=== PATIENT | female | born 1965 | race Caucasian/White ===

== ENCOUNTER 2016-06-29 00:20 | Emergency (ER) | payer MEDICAID ==
[~2016-06-29] VITALS: Ht 172.7 cm; Wt 72.6 kg
[~2016-06-29 00:20] MED LIST: ALPR1TAB2 PO; FLUO40CA8 PO; MORP30TA PO; OXYC10TA49 PO
[2016-06-29] MEDS ORDERED: ONDANSETRON 4 MG TAB.RAPDIS ONE ×2 (01:44→04:12)
[2016-06-29] MEDS ORDERED: ONDANSETRON HCL/PF 4 MG/2 ML VIAL ONE ×2 (01:49→03:14)
[2016-06-29 02:00] LABS: BASOPHILS % (AUTO) 0.3 % (0.0-2.0); DIFF TOTAL % 100 %; EOSINOPHILS # (AUTO) 0.1 /CMM (0.0-0.7); EOSINOPHILS % (AUTO) 0.5 % (0.0-6.0); HEMATOCRIT 37 % (33-45); HEMOGLOBIN 12.5 g/dL (11.5-14.8); LYMPHOCYTES # (AUTO) 1.6 /CMM (0.8-4.8); LYMPHOCYTES % (AUTO) 13.9 % (20.0-44.0); MEAN CORPUSCULAR HEMOGLOBIN 30 PG (26.0-33.0); MEAN CORPUSCULAR HGB CONC 34 g/dl (31.0-36.0); MEAN CORPUSCULAR VOLUME 89 fL (82-100); MONOCYTES # (AUTO) 0.5 /CMM (0.1-1.30); MONOCYTES % (AUTO) 4.4 % (2.0-12.0); NEUTROPHILS # (AUTO) 9.3 /CMM (1.8-8.9); NEUTROPHILS % (AUTO) 80.9 % (43.0-81.0); PLATELET COUNT (AUTO) 308 /CMM (150-450); RED BLOOD CELL COUNT(AUTO) 4.22 MIL/uL (4.0-5.2); WHITE BLOOD COUNT (AUTO) 11.5 K/uL (4.3-11.0)
[2016-06-29] MEDS ORDERED: ONDANSETRON HCL/PF 4 MG/2 ML VIAL IVP ONE (02:00)
[2016-06-29] MEDS ORDERED: HYDROMORPHONE INJ 2 MG/ML DISP.SYRIN IV ONE (02:00)
[2016-06-29] MEDS ORDERED: diphenhydrAMINE HCL 50 MG/ML VIAL IV ONE (02:00)
[2016-06-29] MEDS ORDERED: IV NS 0.9% 1,000 ML BAG IV ONE (02:00)
[2016-06-29] MEDS ORDERED: ONDANSETRON 4 MG TAB.RAPDIS SL ONE ×2 (02:00→04:30)
[2016-06-29] MEDS ORDERED: HYDROMORPHONE 1 MG/1 ML DISP.SYRIN ONE ×2 (02:04→03:14)
[2016-06-29] MEDS ORDERED: diphenhydrAMINE HCL 50 MG/ML VIAL ONE (02:04)
[2016-06-29] MEDS ORDERED: IV NS 0.9% 1,000 ML ONE (02:04)
[2016-06-29] MEDS ORDERED: IV SET PRIMARY 1 EA INFUS.SET MC ONE (02:04)
[2016-06-29 02:14] LABS: CALCIUM, SERUM 9.3 mg/dL (8.5-10.1)
[2016-06-29 02:20] LABS: ALBUMIN 4.1 g/dL (3.4-5.0); BILIRUBIN,DIRECT 0.1 mg/dL (0.0-0.2); BILIRUBIN,TOTAL 0.3 mg/dL (0.2-1.0); INDIRECT BILIRUBIN 0.2 mg/dL (0.0-1.1); TOTAL PROTEIN, SERUM 7.8 g/dL (6.4-8.2)
[2016-06-29] MEDS ORDERED: ONDANSETRON HCL/PF 4 MG/2 ML VIAL IV ONE (03:30)
[2016-06-29] MEDS ORDERED: HYDROMORPHONE 1 MG/1 ML DISP.SYRIN IV ONE (03:30)
[2016-06-29] MEDS ORDERED: HYDROCODONE/APAP 5/325MG 1 EACH TABLET ONE (04:08)
[2016-06-29 04:24] VITALS: BP 139/89
[2016-06-29] MEDS ORDERED: HYDROCODONE/APAP 5/325MG 1 EACH TABLET PO ONE (04:30)
== END 2016-06-29 04:25 | disposition home or self-care (01) ==
LOC: ER 00:23
DX: K80.20 Calculus of gallbladder without cholecystitis without obstruction (principal); F17.200 Nicotine dependence, unspecified, uncomplicated; Z85.820 Personal history of malignant melanoma of skin
CPT/HCPCS: 36415; 74176; 76705; 80048; 80076; 83690; 85025; 96361; 96374; 96375; 96376; 99285; A4606; J1170; J1200; J2405; J7030; Q0162 ×2; Z7610

== ENCOUNTER 2016-12-06 14:52 | Emergency (ER) | payer MEDICAID, OTHER ==
[~2016-12-06] VITALS: Ht 172.7 cm; Wt 86.2 kg
--- NOTE | 2016-12-06 15:19 | NUR ---
VAGINAL BLEEDING X 4 DAYS. 1 TAMPON/HOUR SINCE YESTERDAY
[2016-12-06 15:28] LABS: BASOPHILS # (AUTO) 0.1 /CMM (0.0-0.2); BASOPHILS % (AUTO) 0.7 % (0.0-2.0); EOSINOPHILS # (AUTO) 0.1 /CMM (0.0-0.7); EOSINOPHILS % (AUTO) 0.8 % (0.0-6.0); HEMATOCRIT 41 % (33-45); HEMOGLOBIN 13.6 g/dL (11.5-14.8); LYMPHOCYTES # (AUTO) 1.8 /CMM (0.8-4.8); MEAN CORPUSCULAR HEMOGLOBIN 28 PG (26.0-33.0); MEAN CORPUSCULAR HGB CONC 33 g/dl (31.0-36.0); MEAN CORPUSCULAR VOLUME 87 fL (82-100); MONOCYTES # (AUTO) 0.3 /CMM (0.1-1.30); MONOCYTES % (AUTO) 2.4 % (2.0-12.0); NEUTROPHILS # (AUTO) 8.1 /CMM (1.8-8.9); NEUTROPHILS % (AUTO) 79.1 % (43.0-81.0); PLATELET COUNT (AUTO) 338 /CMM (150-450); RDW COEFFICIENT OF VARIATION 13.8 (11.5-15.0); RED BLOOD CELL COUNT(AUTO) 4.77 MIL/uL (4.0-5.2); WHITE BLOOD COUNT (AUTO) 10.4 K/uL (4.3-11.0)
[2016-12-06] MEDS ORDERED: ACETAMINOPHEN ES 500 MG TABLET ONE (15:30)
[2016-12-06] MEDS ORDERED: IBUPROFEN 600 MG TABLET PO ONE ×2 (15:30)
[2016-12-06] MEDS ORDERED: ACETAMINOPHEN ES 500 MG TABLET PO ONE (15:30)
[2016-12-06 15:38] LABS: CALCIUM, SERUM 8.9 mg/dL (8.5-10.1); CREATININE 0.9 mg/dL (0.6-1.3); POTASSIUM 4.1 mmol/L (3.5-5.1)
[2016-12-06 16:09] LABS: THYROID STIMULATING HORMONE 2.133 uIU/mL (0.358-3.74)
--- NOTE | 2016-12-06 17:06 | NUR ---
Patient discharged to home in stable condition. Written and verbal after care instructions given. Patient verbalizes understanding of instruction.
[2016-12-06 17:10] VITALS: BP 115/82
== END 2016-12-06 17:10 | disposition home or self-care (01) ==
LOC: ER 15:08
DX: N93.8 Other specified abnormal uterine and vaginal bleeding (principal); N83.201 Unspecified ovarian cyst, right side; N95.0 Postmenopausal bleeding; Z85.820 Personal history of malignant melanoma of skin; F17.200 Nicotine dependence, unspecified, uncomplicated; Z98.890 Other specified postprocedural states
CPT/HCPCS: 36415; 76856; 80048; 84439; 84443; 84702; 85025; 99285; 99406; A4606; Z7610

== ENCOUNTER 2018-03-22 15:48 | Emergency (ER) | payer MEDICAID ==
[~2018-03-22] VITALS: Ht 175.3 cm; Wt 74.8 kg
--- NOTE | 2018-03-22 16:10 | NUR ---
PT BED 16, C/O supra pubic abd pain and vaginal bleeding x 2 weeks (3 pads/day) s/p DNC. AOX4, VSS, RR EVEN AND UNLABORED. SKIN WARM, DRY, INTACT. DENIES SOB, DIZZINESS, WEAKNESS, N/V/D. READY FOR EVAL. WILL CONT TO MONITOR.
[2018-03-22] MEDS ORDERED: ONDANSETRON HCL/PF 4 MG/2 ML VIAL ONE (16:28)
[2018-03-22] MEDS ORDERED: MORPHINE SULFATE INJ 4 MG/ML DISP.SYRIN ONE (16:28)
[2018-03-22] MEDS ORDERED: MORPHINE SULFATE INJ 2 MG/ML DISP.SYRIN IV ONE (16:30)
[2018-03-22] MEDS ORDERED: ONDANSETRON HCL/PF 4 MG/2 ML VIAL IVP ONE (16:30)
[2018-03-22] MEDS ORDERED: IV NS 0.9% 1,000 ML BAG IV ONE (16:30)
[2018-03-22 16:50] LABS: BASOPHILS # (AUTO) 0.1 /CMM (0.0-0.2); BASOPHILS % (AUTO) 0.9 % (0.0-2.0); EOSINOPHILS % (AUTO) 1.7 % (0.0-6.0); HEMATOCRIT 38 % (33-45); HEMOGLOBIN 13.2 g/dL (11.5-14.8); LYMPHOCYTES % (AUTO) 28.5 % (20.0-44.0); MEAN CORPUSCULAR HGB CONC 35 g/dl (31.0-36.0); MEAN CORPUSCULAR VOLUME 92 fL (82-100); MONOCYTES # (AUTO) 0.5 /CMM (0.1-1.30); MONOCYTES % (AUTO) 4.4 % (2.0-12.0); NEUTROPHILS # (AUTO) 6.9 /CMM (1.8-8.9); NEUTROPHILS % (AUTO) 64.5 % (43.0-81.0); PLATELET COUNT (AUTO) 282 /CMM (150-450); RED BLOOD CELL COUNT(AUTO) 4.16 MIL/uL (4.0-5.2); WHITE BLOOD COUNT (AUTO) 10.6 K/uL (4.3-11.0)
[2018-03-22 17:02] LABS: CALCIUM, SERUM 8.7 mg/dL (8.5-10.1); CREATININE 1.1 mg/dL (0.6-1.3); POTASSIUM 3.3 mmol/L (3.5-5.1)
[2018-03-22 17:07] LABS: ALBUMIN 3.5 g/dL (3.4-5.0); BILIRUBIN,DIRECT 0.1 mg/dL (0.0-0.2); BILIRUBIN,TOTAL 0.2 mg/dL (0.2-1.0)
--- NOTE | 2018-03-22 17:20 | NUR ---
PAGED OFFICE FOR DR. ADELINA SIMENTAL - HEEL ROOM SUPERVISOR WILL CALL BACK
--- NOTE | 2018-03-22 17:21 | NUR ---
NUMBER FOR OFFICE IS [phone]
[2018-03-22 17:37] LABS: APPEARANCE,URINE Cloudy (CLEAR); BILIRUBIN,URINE Negative (NEGATIVE); BLOOD, URINE Moderate Ery/uL (NEGATIVE); COLOR,URINE Yellow (YELLOW); KETONES,URINE Negative (NEGATIVE); LEUKOCYTE ESTERASE ,URINE Negative (NEGATIVE); NITRITE, URINE Positive (NEGATIVE); PROTEIN,URINE Negative (NEGATIVE); UGLUCOSE Negative (NEGATIVE); UROBILINOGEN,URINE 0.2 EU/dL (0.2)
--- NOTE | 2018-03-22 17:45 | NUR ---
IV removed. Catheter intact and site benign. Pressure and 4x4 applied to site. No bleeding noted. Patient discharged to home in stable condition. Written and verbal after care instructions given. Patient verbalizes understanding of instruction.
[2018-03-22 17:53] LABS: BACTERIA,URINE Many /HPF (None Seen); RBC,URINE 0-2 /HPF (0-2); SQUAMOUS EPITHELIAL CELL,UR Many /HPF (None Seen); WBC,URINE 0-2 /HPF (0-3)
[2018-04-01 15:10] VITALS: BP 126/74
== END 2018-03-22 17:45 | disposition home or self-care (01) ==
LOC: ER 15:49
DX: R10.2 Pelvic and perineal pain (principal); R11.2 Nausea with vomiting, unspecified; M79.7 Fibromyalgia; F17.200 Nicotine dependence, unspecified, uncomplicated; Z60.2 Problems related to living alone; Z98.890 Other specified postprocedural states
CPT/HCPCS: 36415; 76856-TC; 80048-TC; 80076-TC; 81000-TC; 84703-TC; 85025-TC; 85730-TC; 87086-TC; 87186-TC; A4606; J2270; J2405; J7030; Z7610

== ENCOUNTER 2018-03-23 16:45 | Emergency (ER) | payer MEDICAID ==
[~2018-03-23] VITALS: Ht 172.7 cm; Wt 89.4 kg
--- NOTE | 2018-03-23 17:08 | NUR ---
53 Y/O FEMALE PLACED IN BED 13 C/O EXCESS ALCOHOL CONSUMPTION.
[2018-03-23] MEDS ORDERED: KETOROLAC TROMETHAMINE INJ 30 MG/ML VIAL IV ONE (18:00)
[2018-03-23] MEDS ORDERED: ONDANSETRON HCL/PF 4 MG/2 ML VIAL IVP ONE (18:00)
[2018-03-23] MEDS ORDERED: CEFTRIAXONE 1GM BAG (ER ONLY) 1 GM/50 ML PIGGYBACK IV ONE (18:00)
[2018-03-23] MEDS ORDERED: IV NS 0.9% 1,000 ML BAG IV ONE (18:00)
--- NOTE | 2018-03-23 19:00 | NUR ---
Addendum Intravenous fluid administration 1. normal saline 1 L wide open; start time 1929 - end time 2329; PIV # 22 LAC; port # 1 2. Toradol 30 mg - IVP - PIV # 22 LAC; port # 1 3. Rocephine 1 gram IVPB; start time 1909 - end time 1939; PIV # 22 LAC; port # 2
[2018-03-23] MEDS ORDERED: KETOROLAC TROMETHAMINE INJ 30 MG/ML VIAL ONE (19:08)
[2018-03-23] MEDS ORDERED: ONDANSETRON HCL/PF 4 MG/2 ML VIAL ONE (19:08)
[2018-03-23] MEDS ORDERED: CEFTRIAXONE 1GM BAG (ER ONLY) 50 ML IV ONE (19:09)
[2018-03-23 20:10] VITALS: BP 126/74
--- NOTE | 2018-03-23 21:10 | NUR ---
Pt pulled out her IV. Pt yelling and cursing at ER staff. Pt states that she wants to leave. Jose WILBURN notified.
--- NOTE | 2018-03-23 21:14 | NUR ---
DECIDED TO WALK OUT.PT BRINDA
== END 2018-03-23 22:41 | disposition left against medical advice (07) ==
LOC: ER 16:46
DX: N39.0 Urinary tract infection, site not specified (principal); F10.129 Alcohol abuse with intoxication, unspecified; M79.7 Fibromyalgia; F17.200 Nicotine dependence, unspecified, uncomplicated; Z60.2 Problems related to living alone; Z98.890 Other specified postprocedural states; Z79.899 Other long term (current) drug therapy; Y90.9 Presence of alcohol in blood, level not specified
CPT/HCPCS: A4606; J0696; J1885; J2405; J7030; Z7610

== ENCOUNTER 2018-06-22 06:27 | Emergency (ER) | payer MEDICAID ==
[~2018-06-22] VITALS: Ht 172.7 cm; Wt 72.6 kg
--- NOTE | 2018-06-22 06:35 | NUR ---
PT BIBRA FROM HOME C/O L SIDE RIB PAIN S/P GLF LAST NIGHT AFTER DRINKING. NOTED ABRASION TO R CHEEK. DENIES LOC. PT ON MONITOR IN BED 2. NAD NOTED. RESP EVEN AND UNLABORED. WILL CONTINUE TO MONITOR.
[2018-06-22] MEDS ORDERED: ONDANSETRON HCL/PF 4 MG/2 ML VIAL ONE (06:42)
[2018-06-22] MEDS ORDERED: LORAZEPAM INJ 2 MG/ML VIAL ONE (06:43)
[2018-06-22] MEDS ORDERED: CT SWABBABLE VALVE TRANS SET 1 EA INFUS.SET MC ONE (06:52)
[2018-06-22] MEDS ORDERED: IV NS 0.9% 250 ML IV ONE (06:52)
[2018-06-22] MEDS ORDERED: IOHEXOL-350 100 ML VIAL IV ONE (06:52)
[2018-06-22] MEDS ORDERED: IOHEXOL-300 100 ML VIAL IV ONE (06:54)
--- NOTE | 2018-06-22 06:54 | NUR ---
BLOOD DRAWN AND GIVEN TO LAB
[2018-06-22 06:59] LABS: BASOPHILS # (AUTO) 0.1 /CMM (0.0-0.2); BASOPHILS % (AUTO) 0.4 % (0.0-2.0); EOSINOPHILS % (AUTO) 0.2 % (0.0-6.0); HEMATOCRIT 36 % (33-45); HEMOGLOBIN 11.9 g/dL (11.5-14.8); LYMPHOCYTES # (AUTO) 1.2 /CMM (0.8-4.8); LYMPHOCYTES % (AUTO) 8.2 % (20.0-44.0); MEAN CORPUSCULAR HGB CONC 34 g/dl (31.0-36.0); MEAN CORPUSCULAR VOLUME 94 fL (82-100); MONOCYTES # (AUTO) 0.8 /CMM (0.1-1.30); MONOCYTES % (AUTO) 5.5 % (2.0-12.0); NEUTROPHILS % (AUTO) 85.7 % (43.0-81.0); PLATELET COUNT (AUTO) 290 /CMM (150-450); RED BLOOD CELL COUNT(AUTO) 3.78 MIL/uL (4.0-5.2); WHITE BLOOD COUNT (AUTO) 15.1 K/uL (4.3-11.0)
--- NOTE | 2018-06-22 06:59 | NUR ---
PT TAKEN TO RADIOLOGY VIA [facility]
[2018-06-22] MEDS ORDERED: ONDANSETRON HCL/PF 4 MG/2 ML VIAL IVP ONE (07:00)
[2018-06-22] MEDS ORDERED: IV NS 0.9% 500 ML BAG IV ONE (07:00)
[2018-06-22] MEDS ORDERED: LORAZEPAM INJ 2 MG/ML VIAL IV ONE (07:00)
[2018-06-22 07:14] LABS: ALBUMIN 3.9 g/dL (3.4-5.0); BILIRUBIN,DIRECT 0.4 mg/dL (0.0-0.2); CALCIUM, SERUM 8.1 mg/dL (8.5-10.1); CREATININE 2.9 mg/dL (0.6-1.3); POTASSIUM 3.3 mmol/L (3.5-5.1); TOTAL PROTEIN, SERUM 7.7 g/dL (6.4-8.2)
--- NOTE | 2018-06-22 07:26 | NUR ---
received report from felix ROB for [facility].
--- NOTE | 2018-06-22 07:27 | NUR ---
patient came back from ct.
[2018-06-22] MEDS ORDERED: IV NS 0.9% 1,000 ML BAG IV ONE (08:00)
[2018-06-22] MEDS ORDERED: LEVO75TA7 PO (08:08)
[2018-06-22] MEDS ORDERED: CHLO50TA PO (08:08)
[2018-06-22] MEDS ORDERED: CYCL10TA9 PO (08:08)
[2018-06-22] MEDS ORDERED: METF-440 PO (08:08)
[2018-06-22] MEDS ORDERED: BUPR150T10 PO (08:08)
[2018-06-22] MEDS ORDERED: BENA20TA9 PO (08:08)
[2018-06-22] MEDS ORDERED: NPH,100V SQ (08:08)
[2018-06-22] MEDS ORDERED: ACET1TAB23 PO (08:09)
[2018-06-22] MEDS ORDERED: IBUP-1492 PO (08:09)
--- NOTE | 2018-06-22 08:14 | NUR ---
[facility] [phone] Pt accepted to [facility] Bed 120-A Number for report is [phone] [place] for transport is [id number] Transport Auth # [id number]
--- NOTE | 2018-06-22 08:51 | NUR ---
report given to Lindsay from [facility] for [facility].
[2018-06-22 10:55] VITALS: BP 110/64
--- NOTE | 2018-06-22 11:11 | NUR ---
Patient picked up by [facility] in no apparent distress noted, going to [facility].
== END 2018-06-22 11:11 | disposition short-term general hospital (02) ==
LOC: ER 06:32
DX: S30.1XXA Contusion of abdominal wall, initial encounter (principal); S00.81XA Abrasion of other part of head, initial encounter; F10.20 Alcohol dependence, uncomplicated; N28.9 Disorder of kidney and ureter, unspecified; Z98.890 Other specified postprocedural states; Z60.2 Problems related to living alone; Z79.84 Long term (current) use of oral hypoglycemic drugs; Z79.899 Other long term (current) drug therapy; W18.39XA Other fall on same level, initial encounter; Y93.89 Activity, other specified; Y92.89 Other specified places as the place of occurrence of the external cause; Y99.8 Other external cause status
CPT/HCPCS: 36415; 70450; 71260; 72125; 74177; 80048; 80076; 80307; 82550; 85025; 85730; 86850; 96374; 96375; 99285; A4606; J2060; J2405; J7030; J7040; J7050; Q9967 ×2; G0480

== ENCOUNTER 2018-08-19 14:54 | Inpatient (IN) | payer MEDICAID ==
[~2018-08-19] VITALS: Ht 172.7 cm; Wt 84.4 kg
[~2018-08-19 14:54] MED LIST changes: +ACET1TAB23 PO; +BENA20TA9 PO; +BUPR150T10 PO; +CHLO50TA PO; +CYCL10TA9 PO; +IBUP-1492 PO; +LEVO75TA7 PO; +METF-440 PO; -MORP30TA PO; +NPH,100V SQ
[2018-08-19] MEDS ORDERED: TDAP [DIPH/PERTUSSIS/TET] 0.5 ML VIAL IM ONE ×2 (15:52→16:00)
[2018-08-19] MEDS ORDERED: LEVETIRACETAM (500MG) 1,000 MG in IV NS 0.9% 100 ML IV SCH (16:30)
[2018-08-19 16:48] LABS: BASOPHILS # (AUTO) 0.1 /CMM (0.0-0.2); BASOPHILS % (AUTO) 0.5 % (0.0-2.0); EOSINOPHILS % (AUTO) 0.3 % (0.0-6.0); HEMATOCRIT 37 % (33-45); HEMOGLOBIN 12.4 g/dL (11.5-14.8); LYMPHOCYTES # (AUTO) 1.1 /CMM (0.8-4.8); LYMPHOCYTES % (AUTO) 10.9 % (20.0-44.0); MEAN CORPUSCULAR HGB CONC 34 g/dl (31.0-36.0); MEAN CORPUSCULAR VOLUME 98 fL (82-100); MONOCYTES # (AUTO) 0.3 /CMM (0.1-1.30); MONOCYTES % (AUTO) 2.9 % (2.0-12.0); NEUTROPHILS # (AUTO) 8.8 /CMM (1.8-8.9); NEUTROPHILS % (AUTO) 85.4 % (43.0-81.0); PLATELET COUNT (AUTO) 250 /CMM (150-450); RED BLOOD CELL COUNT(AUTO) 3.78 MIL/uL (4.0-5.2); WHITE BLOOD COUNT (AUTO) 10.3 K/uL (4.3-11.0)
[2018-08-19] MEDS ORDERED: ONDANSETRON HCL/PF 4 MG/2 ML VIAL ONE (16:53)
[2018-08-19 16:56] LABS: POTASSIUM 3.7 mmol/L (3.5-5.1)
[2018-08-19] MEDS ORDERED: ONDANSETRON HCL/PF 4 MG/2 ML VIAL IV ONE (17:00)
[2018-08-19] MEDS ORDERED: IV NS 0.9% 1,000 ML BAG IV ONE (17:00)
[2018-08-19 17:01] LABS: ALBUMIN 3.6 g/dL (3.4-5.0); BILIRUBIN,DIRECT 0.3 mg/dL (0.0-0.2); BILIRUBIN,TOTAL 0.8 mg/dL (0.2-1.0); TOTAL PROTEIN, SERUM 7.1 g/dL (6.4-8.2)
[2018-08-19 17:05] LABS: ALCOHOL, BLOOD 341 mg/dL (0-0); SALICYLATE 3.6 mg/dL (2.8-20.0)
[2018-08-19 17:06] LABS: ACETAMINOPHEN < 5 ug/ml (10-30)
[2018-08-19] MEDS ORDERED: ALPR2TAB7 PO (17:26)
[2018-08-19] MEDS ORDERED: BLOO-668 IN (17:26)
[2018-08-19 18:03] VITALS: BP 126/70
[2018-08-19 18:53] LABS: CREATINE KINASE, TOTAL 223 U/L (26-192)
[2018-08-19 19:00] VITALS: BP 117/70
[2018-08-19] MEDS ORDERED: ACETAMINOPHEN 325 MG TABLET PO PRN (19:00)
[2018-08-19] MEDS ORDERED: MAGNESIUM HYDROXIDE 30 ML UDC PO PRN (19:00)
[2018-08-19] MEDS ORDERED: MAG HYDROX/AL HYDROX/SIMETH 30 ML UDC PO PRN (19:00)
[2018-08-19] MEDS ORDERED: LORAZEPAM INJ 2 MG/ML VIAL IV PRN (19:00)
[2018-08-19] MEDS ORDERED: ONDANSETRON HCL/PF 4 MG/2 ML VIAL IVP PRN (19:00)
[2018-08-19] MEDS ORDERED: Z GUARD REMEDY 2 OZ OINT TP PRN ×2 (19:00)
[2018-08-19] MEDS: MORPHINE SULFATE INJ 2 MG/ML DISP.SYRIN IV PRN (19:23)
[2018-08-19] MEDS ORDERED: DEXTROSE 50%-WATER 50 ML DISP.SYRIN IV PRN (19:30)
[2018-08-19] MEDS: IV NS 0.9% 1,000 ML IV PRN (19:30)
[2018-08-19 20:00] VITALS: BP 115/88
[2018-08-19 21:00] VITALS: BP 93/55
[2018-08-19] MEDS: LORAZEPAM INJ 2 MG/ML VIAL IV PRN (21:07)
[2018-08-19 22:00] VITALS: BP 104/53
[2018-08-19] MEDS: HYDROCODONE/APAP 5/325MG 1 EACH TABLET PO PRN (22:22)
[2018-08-19] MEDS: INSULIN REGULAR, HUMAN 100 UNIT/ML 3 ML VIAL SQ PRN (22:28)
[2018-08-19] MEDS: BLOOD SUGAR DIAGNOSTIC 1 EACH STRIP IN SCH (22:29)
[2018-08-19 23:00] VITALS: BP 102/52
[2018-08-19] MEDS: ZOLPIDEM TARTRATE 5 MG TABLET PO PRN (23:58)
[2018-08-20] VITALS (18 sets, daily range): BP systolic 90–124; BP diastolic 31–73
[2018-08-20] MEDS: LORAZEPAM INJ 2 MG/ML VIAL IV PRN ×3 (03:03→21:43)
[2018-08-20] MEDS: LEVETIRACETAM (500MG) 1,000 MG in IV NS 0.9% 100 ML IV SCH ×2 (04:15→16:24)
[2018-08-20] MEDS: HYDROCODONE/APAP 5/325MG 1 EACH TABLET PO PRN ×2 (06:08→20:06)
[2018-08-20] MEDS: BLOOD SUGAR DIAGNOSTIC 1 EACH STRIP IN SCH ×4 (07:42→21:55)
[2018-08-20] MEDS: LEVOTHYROXINE SODIUM 75 MCG TABLET PO SCH (07:42)
[2018-08-20 08:57] LABS: BASOPHILS % (AUTO) 0.3 % (0.0-2.0); EOSINOPHILS % (AUTO) 0.5 % (0.0-6.0); HEMATOCRIT 28 % (33-45); HEMOGLOBIN 9.7 g/dL (11.5-14.8); LYMPHOCYTES # (AUTO) 1.3 /CMM (0.8-4.8); LYMPHOCYTES % (AUTO) 14.9 % (20.0-44.0); MEAN CORPUSCULAR HGB CONC 35 g/dl (31.0-36.0); MEAN CORPUSCULAR VOLUME 97 fL (82-100); MONOCYTES # (AUTO) 0.5 /CMM (0.1-1.30); MONOCYTES % (AUTO) 6.2 % (2.0-12.0); NEUTROPHILS % (AUTO) 78.1 % (43.0-81.0); PLATELET COUNT (AUTO) 159 /CMM (150-450); RED BLOOD CELL COUNT(AUTO) 2.89 MIL/uL (4.0-5.2); WHITE BLOOD COUNT (AUTO) 8.9 K/uL (4.3-11.0)
[2018-08-20 09:16] LABS: ALBUMIN 2.7 g/dL (3.4-5.0); BILIRUBIN,TOTAL 1.6 mg/dL (0.2-1.0); CALCIUM, SERUM 7.4 mg/dL (8.5-10.1); CREATININE 0.9 mg/dL (0.6-1.3); MAGNESIUM 1.6 mg/dL (1.8-2.4); PHOSPHORUS 2.4 mg/dL (2.5-4.9); POTASSIUM 3.8 mmol/L (3.5-5.1); TOTAL PROTEIN, SERUM 5.6 g/dL (6.4-8.2)
[2018-08-20 09:17] LABS: THYROID STIMULATING HORMONE 3.579 uIU/mL (0.358-3.74)
[2018-08-20] MEDS: FLUOXETINE HCL 20 MG CAPSULE PO SCH (09:26)
[2018-08-20] MEDS: BENAZEPRIL HCL 20 MG TABLET PO SCH (09:26)
[2018-08-20] MEDS: PANTOPRAZOLE 40 MG VIAL IV SCH (09:27)
[2018-08-20] MEDS ORDERED: MVI-12 10ML IV ONE (10:00)
[2018-08-20] MEDS ORDERED: MVI ADULT 10ML VIAL = 1AMP 10 ML in IV NS 0.9% 1,000 ML IV ONE (11:00)
[2018-08-20] MEDS: Thiamine 100 MG in IV D5W 50 ML IV SCH (11:22)
[2018-08-20] MEDS: Folic acid 1 MG in IV D5W 50 ML IV SCH (11:22)
[2018-08-20] MEDS ORDERED: K PHOS NEUTRAL 250 MG TABLET PO ONE (12:00)
[2018-08-20] MEDS: INSULIN REGULAR, HUMAN 100 UNIT/ML 3 ML VIAL SQ PRN ×2 (12:25→18:36)
[2018-08-20] MEDS: MORPHINE SULFATE INJ 2 MG/ML DISP.SYRIN IV PRN (16:25)
[2018-08-20] MEDS ORDERED: MAGNESIUM OXIDE 400 MG TABLET PO ONE (21:00)
[2018-08-21] VITALS: BP 104/71
[2018-08-21 00:22] VITALS: BP 104/71
[2018-08-21] MEDS: ZOLPIDEM TARTRATE 5 MG TABLET PO PRN (00:35)
[2018-08-21] MEDS: LORAZEPAM INJ 2 MG/ML VIAL IV PRN ×4 (03:46→23:47)
[2018-08-21 04:00] VITALS: BP_SYST 104; BP_SYST 111; BP_DIAS 71; BP_DIAS 72
[2018-08-21] MEDS: LEVETIRACETAM (500MG) 1,000 MG in IV NS 0.9% 100 ML IV SCH ×2 (04:06→18:37)
[2018-08-21] MEDS: BLOOD SUGAR DIAGNOSTIC 1 EACH STRIP IN SCH ×4 (06:26→22:08)
[2018-08-21] MEDS: INSULIN REGULAR, HUMAN 100 UNIT/ML 3 ML VIAL SQ PRN ×2 (06:29→18:31)
[2018-08-21 07:34] LABS: BASOPHILS % (AUTO) 0.5 % (0.0-2.0); HEMATOCRIT 29 % (33-45); HEMOGLOBIN 9.9 g/dL (11.5-14.8); LYMPHOCYTES # (AUTO) 1.6 /CMM (0.8-4.8); MEAN CORPUSCULAR HGB CONC 35 g/dl (31.0-36.0); MEAN CORPUSCULAR VOLUME 97 fL (82-100); MONOCYTES # (AUTO) 0.4 /CMM (0.1-1.30); MONOCYTES % (AUTO) 6.3 % (2.0-12.0); NEUTROPHILS % (AUTO) 66.2 % (43.0-81.0); PLATELET COUNT (AUTO) 125 /CMM (150-450); RED BLOOD CELL COUNT(AUTO) 2.93 MIL/uL (4.0-5.2)
[2018-08-21 08:00] VITALS: BP 126/81
[2018-08-21 08:03] LABS: CALCIUM, SERUM 8.4 mg/dL (8.5-10.1); CREATININE 0.9 mg/dL (0.6-1.3); POTASSIUM 3.5 mmol/L (3.5-5.1)
[2018-08-21] MEDS: LEVOTHYROXINE SODIUM 75 MCG TABLET PO SCH (08:24)
[2018-08-21] MEDS: BENAZEPRIL HCL 20 MG TABLET PO SCH (08:26)
[2018-08-21] MEDS: PANTOPRAZOLE 40 MG VIAL IV SCH (08:26)
[2018-08-21] MEDS: MAGNESIUM OXIDE 400 MG TABLET PO SCH (08:26)
[2018-08-21] MEDS: FLUOXETINE HCL 20 MG CAPSULE PO SCH (08:27)
[2018-08-21] MEDS: HYDROCODONE/APAP 5/325MG 1 EACH TABLET PO PRN ×2 (09:00→14:28)
[2018-08-21] MEDS: Folic acid 1 MG in IV D5W 50 ML IV SCH (12:30)
[2018-08-21] MEDS ORDERED: K PHOS NEUTRAL 250 MG TABLET PO ONE (13:30)
[2018-08-21] MEDS: Thiamine 100 MG in IV D5W 50 ML IV SCH (15:23)
[2018-08-21 16:00] VITALS: BP 130/81
[2018-08-21] MEDS: IV NS 0.9% 1,000 ML IV PRN (16:34)
[2018-08-21] MEDS ORDERED: LEVETIRACETAM (250 MG) 250 MG TABLET PO SCH (18:00)
[2018-08-21] MEDS ORDERED: LEVETIRACETAM (500MG) 1,000 MG in IV NS 0.9% 100 ML IV SCH (18:00)
[2018-08-21] MEDS: MORPHINE SULFATE INJ 2 MG/ML DISP.SYRIN IV PRN (22:19)
[2018-08-21] MEDS ORDERED: QUETIAPINE FUMARATE 25 MG TABLET PO ONE (22:30)
[2018-08-21 23:00] VITALS: BP 145/99
[2018-08-22 00:25] VITALS: BP 133/85
[2018-08-22] MEDS ORDERED: diphenhydrAMINE HCL 50 MG/ML VIAL IV ONE (00:30)
[2018-08-22] MEDS ORDERED: HALOPERIDOL LACTATE INJ 5 MG/ML VIAL IM ONE (00:30)
[2018-08-22 00:58] VITALS: BP 122/79
[2018-08-22] MEDS: BLOOD SUGAR DIAGNOSTIC 1 EACH STRIP IN SCH ×4 (05:41→21:33)
[2018-08-22] MEDS: INSULIN REGULAR, HUMAN 100 UNIT/ML 3 ML VIAL SQ PRN ×3 (05:42→21:30)
[2018-08-22] MEDS: LEVETIRACETAM (500MG) 1,000 MG in IV NS 0.9% 100 ML IV SCH (06:18)
[2018-08-22 06:33] LABS: BASOPHILS % (AUTO) 0.4 % (0.0-2.0); HEMATOCRIT 28 % (33-45); HEMOGLOBIN 9.7 g/dL (11.5-14.8); LYMPHOCYTES # (AUTO) 1.3 /CMM (0.8-4.8); LYMPHOCYTES % (AUTO) 21.6 % (20.0-44.0); MEAN CORPUSCULAR HGB CONC 34 g/dl (31.0-36.0); MEAN CORPUSCULAR VOLUME 98 fL (82-100); MONOCYTES # (AUTO) 0.4 /CMM (0.1-1.30); MONOCYTES % (AUTO) 7.5 % (2.0-12.0); NEUTROPHILS # (AUTO) 4.1 /CMM (1.8-8.9); NEUTROPHILS % (AUTO) 69.5 % (43.0-81.0); PLATELET COUNT (AUTO) 115 /CMM (150-450); RED BLOOD CELL COUNT(AUTO) 2.89 MIL/uL (4.0-5.2); WHITE BLOOD COUNT (AUTO) 5.9 K/uL (4.3-11.0)
[2018-08-22 06:52] LABS: CALCIUM, SERUM 8.5 mg/dL (8.5-10.1); CREATININE 0.7 mg/dL (0.6-1.3); POTASSIUM 3.1 mmol/L (3.5-5.1)
[2018-08-22] MEDS: LEVOTHYROXINE SODIUM 75 MCG TABLET PO SCH (07:57)
[2018-08-22 08:00] VITALS: BP 133/94
[2018-08-22] MEDS: MAGNESIUM OXIDE 400 MG TABLET PO SCH (08:25)
[2018-08-22] MEDS: FLUOXETINE HCL 20 MG CAPSULE PO SCH (08:25)
[2018-08-22] MEDS: PANTOPRAZOLE 40 MG VIAL IV SCH (08:27)
[2018-08-22] MEDS: BENAZEPRIL HCL 20 MG TABLET PO SCH (08:29)
[2018-08-22] MEDS ORDERED: FOLIC ACID 1 MG TABLET PO SCH (09:00)
[2018-08-22] MEDS ORDERED: THIAMINE HCL 100 MG TABLET PO SCH (09:00)
[2018-08-22] MEDS: Folic acid 1 MG in IV D5W 50 ML IV SCH (09:15)
[2018-08-22] MEDS: POTASSIUM CHLORIDE 20 MEQ TAB.PRT.SR PO SCH ×2 (09:56→11:29)
[2018-08-22] MEDS: Thiamine 100 MG in IV D5W 50 ML IV SCH (09:56)
[2018-08-22] MEDS ORDERED: POTASSIUM CHLORIDE 20 MEQ TAB.PRT.SR PO ONE (12:30)
[2018-08-22] MEDS: LORAZEPAM INJ 2 MG/ML VIAL IV PRN ×2 (12:38→20:22)
[2018-08-22] MEDS ORDERED: QUETIAPINE FUMARATE 25 MG TABLET PO PRN (13:00)
[2018-08-22] MEDS: DIVALPROEX SODIUM 250 MG TABLET.DR PO SCH ×2 (13:55→17:41)
[2018-08-22 16:00] VITALS: BP 129/83
[2018-08-22] MEDS: HYDROCODONE/APAP 5/325MG 1 EACH TABLET PO PRN (19:40)
[2018-08-22 20:00] VITALS: BP_SYST 135; BP_SYST 138; BP_DIAS 79
[2018-08-22] MEDS: LEVETIRACETAM (250 MG) 250 MG TABLET PO SCH (20:19)
[2018-08-22] MEDS: IV NS 0.9% 1,000 ML IV PRN (21:31)
[2018-08-23] MEDS: HYDROCODONE/APAP 5/325MG 1 EACH TABLET PO PRN ×3 (03:03→20:10)
[2018-08-23] MEDS: LEVOTHYROXINE SODIUM 75 MCG TABLET PO SCH (06:56)
[2018-08-23] MEDS: BLOOD SUGAR DIAGNOSTIC 1 EACH STRIP IN SCH ×4 (06:57→21:09)
[2018-08-23] MEDS: INSULIN REGULAR, HUMAN 100 UNIT/ML 3 ML VIAL SQ PRN ×3 (07:02→17:41)
[2018-08-23 08:00] VITALS: BP 119/74
[2018-08-23] MEDS: PANTOPRAZOLE 40 MG VIAL IV SCH (08:15)
[2018-08-23] MEDS: DIVALPROEX SODIUM 250 MG TABLET.DR PO SCH ×3 (08:16→17:36)
[2018-08-23] MEDS: MAGNESIUM OXIDE 400 MG TABLET PO SCH (08:16)
[2018-08-23] MEDS: FLUOXETINE HCL 20 MG CAPSULE PO SCH (08:16)
[2018-08-23] MEDS: LEVETIRACETAM (250 MG) 250 MG TABLET PO SCH ×2 (08:16→20:09)
[2018-08-23] MEDS: Folic acid 1 MG in IV D5W 50 ML IV SCH (09:08)
[2018-08-23 09:34] LABS: BASOPHILS % (AUTO) 0.5 % (0.0-2.0); EOSINOPHILS % (AUTO) 1.9 % (0.0-6.0); HEMATOCRIT 29 % (33-45); HEMOGLOBIN 9.9 g/dL (11.5-14.8); LYMPHOCYTES # (AUTO) 1.3 /CMM (0.8-4.8); LYMPHOCYTES % (AUTO) 24.9 % (20.0-44.0); MEAN CORPUSCULAR HGB CONC 34 g/dl (31.0-36.0); MEAN CORPUSCULAR VOLUME 98 fL (82-100); MONOCYTES # (AUTO) 0.3 /CMM (0.1-1.30); NEUTROPHILS # (AUTO) 3.6 /CMM (1.8-8.9); NEUTROPHILS % (AUTO) 66.7 % (43.0-81.0); PLATELET COUNT (AUTO) 127 /CMM (150-450); RED BLOOD CELL COUNT(AUTO) 2.93 MIL/uL (4.0-5.2); WHITE BLOOD COUNT (AUTO) 5.4 K/uL (4.3-11.0)
[2018-08-23 09:50] LABS: CALCIUM, SERUM 8.3 mg/dL (8.5-10.1); CREATININE 0.9 mg/dL (0.6-1.3); MAGNESIUM 1.6 mg/dL (1.8-2.4); PHOSPHORUS 2.9 mg/dL (2.5-4.9); POTASSIUM 3.5 mmol/L (3.5-5.1)
[2018-08-23] MEDS: Thiamine 100 MG in IV D5W 50 ML IV SCH (10:00)
[2018-08-23] MEDS: BENAZEPRIL HCL 20 MG TABLET PO SCH (10:00)
[2018-08-23] MEDS: LORAZEPAM INJ 2 MG/ML VIAL IV PRN (11:30)
[2018-08-23] MEDS: IV NS 0.9% 1,000 ML IV PRN (13:51)
[2018-08-23] MEDS: Magnesium 1GM/D5W 100ML PREMIX 100 ML IV SCH ×2 (15:30→16:44)
[2018-08-23 16:00] VITALS: BP 142/90
[2018-08-23 20:00] VITALS: BP 138/90
[2018-08-23] MEDS: ZOLPIDEM TARTRATE 5 MG TABLET PO PRN (21:09)
[2018-08-24] MEDS: LORAZEPAM INJ 2 MG/ML VIAL IV PRN ×3 (05:02→22:19)
[2018-08-24] MEDS: IV NS 0.9% 1,000 ML IV PRN ×2 (05:34→21:14)
[2018-08-24 06:26] LABS: BASOPHILS % (AUTO) 0.7 % (0.0-2.0); EOSINOPHILS % (AUTO) 2.1 % (0.0-6.0); HEMATOCRIT 26 % (33-45); LYMPHOCYTES # (AUTO) 1.8 /CMM (0.8-4.8); LYMPHOCYTES % (AUTO) 30.4 % (20.0-44.0); MEAN CORPUSCULAR HGB CONC 35 g/dl (31.0-36.0); MEAN CORPUSCULAR VOLUME 98 fL (82-100); MONOCYTES # (AUTO) 0.5 /CMM (0.1-1.30); NEUTROPHILS # (AUTO) 3.6 /CMM (1.8-8.9); NEUTROPHILS % (AUTO) 58.8 % (43.0-81.0); PLATELET COUNT (AUTO) 137 /CMM (150-450); RED BLOOD CELL COUNT(AUTO) 2.62 MIL/uL (4.0-5.2)
[2018-08-24] MEDS: BLOOD SUGAR DIAGNOSTIC 1 EACH STRIP IN SCH ×4 (06:32→21:26)
[2018-08-24] MEDS: INSULIN REGULAR, HUMAN 100 UNIT/ML 3 ML VIAL SQ PRN ×4 (06:35→21:24)
[2018-08-24 06:44] LABS: CALCIUM, SERUM 7.8 mg/dL (8.5-10.1); CREATININE 0.7 mg/dL (0.6-1.3); MAGNESIUM 1.9 mg/dL (1.8-2.4); PHOSPHORUS 2.9 mg/dL (2.5-4.9); POTASSIUM 3.6 mmol/L (3.5-5.1)
[2018-08-24] MEDS: LEVOTHYROXINE SODIUM 75 MCG TABLET PO SCH (07:35)
[2018-08-24] MEDS: MORPHINE SULFATE INJ 2 MG/ML DISP.SYRIN IV PRN ×2 (07:42→17:16)
[2018-08-24] MEDS: THIAMINE HCL 100 MG TABLET PO SCH (08:07)
[2018-08-24] MEDS: BENAZEPRIL HCL 20 MG TABLET PO SCH (08:07)
[2018-08-24] MEDS: DIVALPROEX SODIUM 250 MG TABLET.DR PO SCH ×3 (08:07→17:08)
[2018-08-24] MEDS: LEVETIRACETAM (250 MG) 250 MG TABLET PO SCH ×2 (08:07→21:13)
[2018-08-24] MEDS: FLUOXETINE HCL 20 MG CAPSULE PO SCH (08:08)
[2018-08-24] MEDS: PANTOPRAZOLE 40 MG VIAL IV SCH (08:08)
[2018-08-24] MEDS: FOLIC ACID 1 MG TABLET PO SCH (08:08)
[2018-08-24] MEDS: MAGNESIUM OXIDE 400 MG TABLET PO SCH (08:08)
[2018-08-24] MEDS: HYDROCODONE/APAP 5/325MG 1 EACH TABLET PO PRN (12:08)
[2018-08-24 20:00] VITALS: BP 146/93
[2018-08-24] MEDS: ZOLPIDEM TARTRATE 5 MG TABLET PO PRN (21:14)
[2018-08-25] MEDS: HYDROCODONE/APAP 5/325MG 1 EACH TABLET PO PRN ×2 (02:25→08:53)
[2018-08-25] MEDS: LORAZEPAM INJ 2 MG/ML VIAL IV PRN (06:51)
[2018-08-25] MEDS: INSULIN REGULAR, HUMAN 100 UNIT/ML 3 ML VIAL SQ PRN ×2 (06:58→12:13)
[2018-08-25] MEDS: BLOOD SUGAR DIAGNOSTIC 1 EACH STRIP IN SCH ×2 (06:58→12:14)
[2018-08-25] MEDS: LEVOTHYROXINE SODIUM 75 MCG TABLET PO SCH (07:00)
[2018-08-25 08:41] VITALS: BP 146/97
[2018-08-25] MEDS: BENAZEPRIL HCL 20 MG TABLET PO SCH (08:41)
[2018-08-25] MEDS: LEVETIRACETAM (250 MG) 250 MG TABLET PO SCH (08:42)
[2018-08-25] MEDS: FLUOXETINE HCL 20 MG CAPSULE PO SCH (08:42)
[2018-08-25] MEDS: THIAMINE HCL 100 MG TABLET PO SCH (08:42)
[2018-08-25] MEDS: FOLIC ACID 1 MG TABLET PO SCH (08:42)
[2018-08-25] MEDS: PANTOPRAZOLE 40 MG VIAL IV SCH (08:42)
[2018-08-25] MEDS: MAGNESIUM OXIDE 400 MG TABLET PO SCH (08:42)
[2018-08-25] MEDS: DIVALPROEX SODIUM 250 MG TABLET.DR PO SCH ×2 (08:42→12:13)
[2018-08-25] MEDS ORDERED: LEVE250T2 PO (11:33)
== END 2018-08-25 14:25 | disposition home or self-care (01) | DRG 55 ==
LOC: ER 14:55 → ICU 17:57 → TELE 08-20 15:57 → MED 08-21 08:12 → MEDSG2 08-21 20:55
PROVIDERS: ADMIT Hospitalist; ATTEND Nurse Practitioner Acute Care
DX: S06.5X0A Traumatic subdural hemorrhage without loss of consciousness, initial encounter (principal); N17.9 Acute kidney failure, unspecified; G31.2 Degeneration of nervous system due to alcohol; E83.42 Hypomagnesemia; S01.01XA Laceration without foreign body of scalp, initial encounter; S41.111A Laceration without foreign body of right upper arm, initial encounter; E03.9 Hypothyroidism, unspecified; S06.6X0A Traumatic subarachnoid hemorrhage without loss of consciousness, initial encounter; W18.30XA Fall on same level, unspecified, initial encounter; Y92.89 Other specified places as the place of occurrence of the external cause; Y90.8 Blood alcohol level of 240 mg/100 ml or more; E86.0 Dehydration; E11.9 Type 2 diabetes mellitus without complications; F17.210 Nicotine dependence, cigarettes, uncomplicated; F32.9 Major depressive disorder, single episode, unspecified; Z87.820 Personal history of traumatic brain injury; I10 Essential (primary) hypertension; M79.7 Fibromyalgia; G89.29 Other chronic pain; M54.5 Low back pain; F43.10 Post-traumatic stress disorder, unspecified; F41.9 Anxiety disorder, unspecified; E87.6 Hypokalemia; F10.229 Alcohol dependence with intoxication, unspecified
CPT/HCPCS: 36415; 70450-TC; 71045-TC; 72125-TC; 80048-TC; 80053-TC; 80061-TC; 80076-TC; 82550-TC; 82962-TC; 83735-TC; 84100-TC; 84443-TC; 84484-TC; 85025-TC; 85730-TC; 87081-TC; 90715; 97110-TC; 97116-TC; 97530-TC; A6402; C9113; G0378; G0480; J1200; J1630; J1815; J1953; J2060; J2270; J2405; J3411; J3475; J3490; J7030; J7060

== ENCOUNTER 2018-09-04 16:42 | Emergency (ER) | payer MEDICAID ==
[~2018-09-04] VITALS: Ht 172.7 cm; Wt 72.6 kg
[~2018-09-04 16:42] MED LIST changes: -ACET1TAB23 PO; -ALPR1TAB2 PO; +ALPR2TAB7 PO; +BLOO-668 IN; +LEVE250T2 PO; -OXYC10TA49 PO
[2018-09-04 16:45] VITALS: BP 138/83
--- NOTE | 2018-09-04 16:50 | NUR ---
DONYA REMOVAL, HEAD LACERATION STAPLED 08/19/2018, PATIENT A/OX4, NO DISTRESS NOTED. PLACED ON THE MONITOR. WILL MONITOR.
--- NOTE | 2018-09-04 17:44 | NUR ---
PATIENT CAME BACK FROM CT.
--- NOTE | 2018-09-04 18:44 | NUR ---
VSS, BP 118/68 HR 76 SPO2 99% in RA. patient a/ox4, no distress. Patient discharged to home in stable condition. Written and verbal after care instructions given. Patient verbalizes understanding of instruction.
== END 2018-09-04 18:46 | disposition home or self-care (01) ==
LOC: ER 16:42
DX: S01.81XD Laceration without foreign body of other part of head, subsequent encounter (principal); F10.10 Alcohol abuse, uncomplicated; I10 Essential (primary) hypertension; E11.9 Type 2 diabetes mellitus without complications; F11.20 Opioid dependence, uncomplicated; M79.7 Fibromyalgia; Y90.9 Presence of alcohol in blood, level not specified; Z98.890 Other specified postprocedural states; Z60.2 Problems related to living alone; X58.XXXD Exposure to other specified factors, subsequent encounter
CPT/HCPCS: 70450-TC

== ENCOUNTER 2018-09-05 03:29 | Emergency (ER) | payer MEDICAID ==
--- NOTE | 2018-09-05 03:39 | NUR ---
CALLED IN WR, NO ANSWER.
--- NOTE | 2018-09-05 04:06 | NUR ---
CALLED IN WR, NO ANSWER.
--- NOTE | 2018-09-05 04:30 | NUR ---
CALLED IN WR, NO ANSWER.
== END 2018-09-05 04:31 | disposition left against medical advice (07) ==
LOC: ER 03:34
DX: Z53.21 Procedure and treatment not carried out due to patient leaving prior to being seen by health care provider (principal); I10 Essential (primary) hypertension; E11.9 Type 2 diabetes mellitus without complications; F10.10 Alcohol abuse, uncomplicated; F11.20 Opioid dependence, uncomplicated; M79.7 Fibromyalgia; Y90.9 Presence of alcohol in blood, level not specified; Z98.890 Other specified postprocedural states; Z79.4 Long term (current) use of insulin; Z60.2 Problems related to living alone

== ENCOUNTER 2018-09-05 11:48 | Emergency (ER) | payer MEDICAID ==
[~2018-09-05] VITALS: Ht 172.7 cm; Wt 84.8 kg
--- NOTE | 2018-09-05 12:05 | NUR ---
BG 120.
--- NOTE | 2018-09-05 12:07 | NUR ---
PT GUY FROM HOME. ROOMATE CALLED S/P PT C/O NAUSEA AND STATES "I FEEL LIKE IM GONNA HAVE A SEIZURE." PT WAS SEEN YESTERDAY FOR SAME REASON. PLACED ON MONITOR. AWAITING MD DELA CRUZ.
--- NOTE | 2018-09-05 12:19 | NUR ---
PT TO RADIOLOGY FOR HEAD CT SCAN VIA [facility].
--- NOTE | 2018-09-05 13:22 | NUR ---
PT IS AMBULATORY W/ STEADY GAIT. WANTS TO GO HOME. MEDICALLY CLEARED FOR D/C. DISCHARGE HOME IN STABLE CONDITION.
[2018-09-05 13:23] VITALS: BP 115/84
== END 2018-09-05 13:24 | disposition home or self-care (01) ==
LOC: ER 11:50
DX: S09.8XXA Other specified injuries of head, initial encounter (principal); F10.129 Alcohol abuse with intoxication, unspecified; I10 Essential (primary) hypertension; E11.9 Type 2 diabetes mellitus without complications; Z98.890 Other specified postprocedural states; Z60.2 Problems related to living alone; Z79.84 Long term (current) use of oral hypoglycemic drugs; Z79.899 Other long term (current) drug therapy; Z79.4 Long term (current) use of insulin; X58.XXXA Exposure to other specified factors, initial encounter; Y93.89 Activity, other specified; Y92.89 Other specified places as the place of occurrence of the external cause; Y99.8 Other external cause status; Y90.9 Presence of alcohol in blood, level not specified
CPT/HCPCS: 70450-TC; 82962-TC

== ENCOUNTER 2018-09-09 13:04 | Emergency (ER) | payer MEDICAID ==
[~2018-09-09] VITALS: Ht 172.7 cm; Wt 83.9 kg
[2018-09-09 13:04] VITALS: BP 116/84
--- NOTE | 2018-09-09 15:54 | NUR ---
CALLED IN THE WAITING ROOM, PATIENT IS NOT AROUND.
--- NOTE | 2018-09-09 16:17 | NUR ---
2ND CALL, PATIENT IS NOT IN THE WAITING ROOM.
--- NOTE | 2018-09-09 16:20 | NUR ---
Patient eloped from facility. ER MD notified.
== END 2018-09-09 16:20 | disposition left against medical advice (07) ==
LOC: ER 13:06
DX: R51 Headache (principal); I10 Essential (primary) hypertension; E11.9 Type 2 diabetes mellitus without complications; F10.10 Alcohol abuse, uncomplicated; Y90.9 Presence of alcohol in blood, level not specified; Z98.890 Other specified postprocedural states; Z53.21 Procedure and treatment not carried out due to patient leaving prior to being seen by health care provider

== ENCOUNTER 2018-09-10 03:19 | Emergency (ER) | payer MEDICAID ==
[~2018-09-10] VITALS: Ht 172.7 cm; Wt 83.9 kg
--- NOTE | 2018-09-10 03:45 | NUR ---
BIB AMBULANCE W/ WEAKNESS, V/V, C/O ABD PAIN. ETOH, DROWSY, PLASCED ON MONITOR, WILL CONT TO MONITOR ,
[2018-09-10 03:58] LABS: BASOPHILS # (AUTO) 0.1 /CMM (0.0-0.2); BASOPHILS % (AUTO) 0.5 % (0.0-2.0); EOSINOPHILS % (AUTO) 0.4 % (0.0-6.0); HEMATOCRIT 38 % (33-45); HEMOGLOBIN 12.6 g/dL (11.5-14.8); LYMPHOCYTES # (AUTO) 1.7 /CMM (0.8-4.8); LYMPHOCYTES % (AUTO) 11.7 % (20.0-44.0); MEAN CORPUSCULAR HGB CONC 33 g/dl (31.0-36.0); MEAN CORPUSCULAR VOLUME 96 fL (82-100); MONOCYTES # (AUTO) 0.5 /CMM (0.1-1.30); MONOCYTES % (AUTO) 3.7 % (2.0-12.0); NEUTROPHILS # (AUTO) 12.4 /CMM (1.8-8.9); NEUTROPHILS % (AUTO) 83.7 % (43.0-81.0); PLATELET COUNT (AUTO) 505 /CMM (150-450); RED BLOOD CELL COUNT(AUTO) 3.94 MIL/uL (4.0-5.2); WHITE BLOOD COUNT (AUTO) 14.9 K/uL (4.3-11.0)
[2018-09-10 04:08] LABS: CREATININE 2.4 mg/dL (0.6-1.3); POTASSIUM 3.5 mmol/L (3.5-5.1)
[2018-09-10 04:13] LABS: ALBUMIN 4.3 g/dL (3.4-5.0); BILIRUBIN,DIRECT 0.2 mg/dL (0.0-0.2); BILIRUBIN,TOTAL 0.9 mg/dL (0.2-1.0); TOTAL PROTEIN, SERUM 8.1 g/dL (6.4-8.2)
[2018-09-10 04:15] LABS: APPEARANCE,URINE Cloudy (CLEAR); BILIRUBIN,URINE SMALL (NEGATIVE); BLOOD, URINE Small Ery/uL (NEGATIVE); COLOR,URINE Dark (YELLOW); KETONES,URINE Trace (NEGATIVE); LEUKOCYTE ESTERASE ,URINE Moderate (NEGATIVE); NITRITE, URINE Negative (NEGATIVE); PROTEIN,URINE 100 mg/dl (NEGATIVE); UGLUCOSE Negative (NEGATIVE); UROBILINOGEN,URINE 0.2 EU/dL (0.2)
[2018-09-10] MEDS ORDERED: MORPHINE SULFATE INJ 2 MG/ML DISP.SYRIN ONE ×2 (04:18→05:31)
[2018-09-10] MEDS ORDERED: ONDANSETRON HCL/PF 4 MG/2 ML VIAL ONE (04:18)
--- NOTE | 2018-09-10 04:25 | NUR ---
picked up for ct
[2018-09-10] MEDS ORDERED: ONDANSETRON HCL/PF - ER 4 MG/2 ML VIAL IV ONE (04:30)
[2018-09-10] MEDS ORDERED: MORPHINE SULFATE INJ 2 MG/ML DISP.SYRIN IV ONE ×2 (04:30→05:30)
[2018-09-10 04:41] LABS: BACTERIA,URINE Many /HPF (None Seen); SQUAMOUS EPITHELIAL CELL,UR Few /HPF (None Seen); WBC,URINE TOO NUMEROUS TO COUN /HPF (0-3)
[2018-09-10] MEDS ORDERED: CEFTRIAXONE 1 G in IV D5W 50 ML IV ONE (05:30)
[2018-09-10] MEDS ORDERED: CEFTRIAXONE 1GM BAG (ER ONLY) 50 ML IV ONE (05:31)
--- NOTE | 2018-09-10 06:00 | NUR ---
Patient is resting comfortably in bed with eyes closed. Easily aroused. VSS
[2018-09-10] MEDS ORDERED: oxyCODONE/APAP (5/325 MG) 1 UDTAB TABLET PO ONE (07:00)
[2018-09-10] MEDS ORDERED: oxyCODONE HCL SR 20MG TAB.SR.12H PO SCH (07:00)
[2018-09-10] MEDS ORDERED: oxyCODONE/APAP (5/325 MG) 1 UDTAB TABLET ONE (07:05)
--- NOTE | 2018-09-10 07:12 | NUR ---
OXYCODONE WAS NOT ADMINISTERED DUE TO MEDICATION NOT AVAILABLE IN THE ED. PERCOCET GIVEN ORDERED FOR C/O SEVERE ABD PAIN. PT REQUESTING PO PAIN MEDICATION AND REPORTED MINIMAL PAIN RELIEF WITH MORPHIN
--- NOTE | 2018-09-10 07:57 | NUR ---
Lisa [phone] called with transfer information. Pt accepted by Dr. Cordero from [facility] Room 120-A Report to Beka, Nursing Financial Services Assistant [phone] [facility] auth #[id number]
[2018-09-10 08:17] VITALS: BP 156/98
--- NOTE | 2018-09-10 08:17 | NUR ---
REPORT GIVEN TO OFELIA ROB.
--- NOTE | 2018-09-10 08:27 | NUR ---
[facility] [phone] ETA IS 1000 PER [place] TRIPN NUMBER IS [id number]
--- NOTE | 2018-09-10 10:49 | NUR ---
PATIENT A/OX3, NAD, VSS. BREATHING EVEN AND UNALBORED, REPORT GIVEN TO BELL VALET. PATIENT WILL BE TRANSFERRED TO [facility]. PATIENT LEFT IN STABLE CONDITION. PATIENT PULLED OUT PIV PRIOR TO LEAVING.
== END 2018-09-10 10:53 | disposition short-term general hospital (02) ==
LOC: ER 03:26
DX: N39.0 Urinary tract infection, site not specified (principal); N17.9 Acute kidney failure, unspecified; F10.10 Alcohol abuse, uncomplicated; I10 Essential (primary) hypertension; E11.9 Type 2 diabetes mellitus without complications; G40.909 Epilepsy, unspecified, not intractable, without status epilepticus; F17.200 Nicotine dependence, unspecified, uncomplicated; G89.4 Chronic pain syndrome; F41.9 Anxiety disorder, unspecified; E03.9 Hypothyroidism, unspecified; F32.9 Major depressive disorder, single episode, unspecified; F11.20 Opioid dependence, uncomplicated; M79.7 Fibromyalgia; Y90.1 Blood alcohol level of 20-39 mg/100 ml; Z98.890 Other specified postprocedural states; Z60.2 Problems related to living alone
CPT/HCPCS: 36415; 74176; 80048; 80076; 80307; 81001; 83690; 85025; 87077; 87081; 87086; 87186; 96365; 96375; 96376; 99285; J0696 ×2; J2270 ×2; J2405 ×2; J7060; 81000-TC; G0480

== ENCOUNTER 2018-09-28 20:47 | Emergency (ER) | payer MEDICAID ==
--- NOTE | 2018-09-28 21:17 | NUR ---
CALLED PT TO BE TRIAGED 3X, NO ANSWER
--- NOTE | 2018-09-28 21:39 | NUR ---
CALLED PT TO BE TRIAGED 3X, NO ANSWER
--- NOTE | 2018-09-28 22:08 | NUR ---
CALLED PT TO TRIAGED 3X, NO ANSWER
== END 2018-09-28 22:10 | disposition left against medical advice (07) ==
LOC: ER 20:50
DX: Z53.21 Procedure and treatment not carried out due to patient leaving prior to being seen by health care provider (principal)

== ENCOUNTER 2018-10-13 17:14 | Emergency (ER) | payer MEDICAID ==
[~2018-10-13] VITALS: Ht 172.7 cm; Wt 77.1 kg
--- NOTE | 2018-10-13 17:49 | NUR ---
PT PRESENTED TO THE ER WITH A C/O COUGH WITH CONGESTION. PT ALSO STATED THAT SHE IS HAVING EPIGASTRIC PAIN WITH N/V SUB PRIOR. PT AMBULATED TO ER #13 WITH A STEADY GAIT. PT WAS PLACED ON THE MONITOR AND CONTINUOUS PULSE OX. US SALLY GAFFNEY, IS AT THE BEDSIDE.
[2018-10-13] MEDS ORDERED: ONDANSETRON HCL/PF 4 MG/2 ML VIAL ONE (17:51)
[2018-10-13] MEDS ORDERED: FAMOTIDINE/PF INJ 20 MG/2 ML VIAL IV ONE ×2 (17:51→18:00)
[2018-10-13] MEDS ORDERED: IV NS 0.9% 1,000 ML BAG IV ONE (18:00)
[2018-10-13] MEDS ORDERED: ONDANSETRON HCL/PF 4 MG/2 ML VIAL IVP ONE (18:00)
--- NOTE | 2018-10-13 18:00 | NUR ---
IV STARTED IN RAC. BLOOD WAS DRAWN AND SENT TO LAB. PT IS UNABLE TO GIVE A URINE SAMPLE AT THIS TIME.
[2018-10-13 18:10] LABS: BASOPHILS # (AUTO) 0.1 /CMM (0.0-0.2); BASOPHILS % (AUTO) 0.8 % (0.0-2.0); EOSINOPHILS % (AUTO) 0.5 % (0.0-6.0); HEMATOCRIT 41 % (33-45); HEMOGLOBIN 13.9 g/dL (11.5-14.8); LYMPHOCYTES # (AUTO) 2.8 /CMM (0.8-4.8); LYMPHOCYTES % (AUTO) 28.6 % (20.0-44.0); MEAN CORPUSCULAR HGB CONC 34 g/dl (31.0-36.0); MEAN CORPUSCULAR VOLUME 90 fL (82-100); MONOCYTES # (AUTO) 0.5 /CMM (0.1-1.30); MONOCYTES % (AUTO) 4.9 % (2.0-12.0); NEUTROPHILS # (AUTO) 6.4 /CMM (1.8-8.9); NEUTROPHILS % (AUTO) 65.2 % (43.0-81.0); PLATELET COUNT (AUTO) 475 /CMM (150-450); RED BLOOD CELL COUNT(AUTO) 4.52 MIL/uL (4.0-5.2); WHITE BLOOD COUNT (AUTO) 9.9 K/uL (4.3-11.0)
[2018-10-13 18:30] LABS: CALCIUM, SERUM 8.7 mg/dL (8.5-10.1); CREATININE 1.1 mg/dL (0.6-1.3); POTASSIUM 3.3 mmol/L (3.5-5.1)
[2018-10-13 18:36] LABS: ALBUMIN 3.9 g/dL (3.4-5.0); BILIRUBIN,TOTAL 0.2 mg/dL (0.2-1.0)
--- NOTE | 2018-10-13 18:47 | NUR ---
PT IS C/O ABD PAIN AND FEELS THAT THE PAIN HAS NOT DECREASED. PT'S BP IS DOWN WNL AND PT APPEARS TO BE RESTING COMFORTABLY. WILL NOTIFY RE: PT'S PAIN.
[2018-10-13] MEDS ORDERED: LORAZEPAM INJ 2 MG/ML VIAL ONE (18:56)
[2018-10-13 18:59] LABS: ALCOHOL, BLOOD 172 mg/dL (0-0)
[2018-10-13] MEDS ORDERED: LORAZEPAM INJ 2 MG/ML VIAL IV ONE ×2 (19:00→19:30)
--- NOTE | 2018-10-13 19:05 | NUR ---
PT REC'D MEDICATION ORDERED.
--- NOTE | 2018-10-13 19:11 | NUR ---
CALLED [facility] RE: US AND CXR READ
[2018-10-13] MEDS ORDERED: PANTOPRAZOLE 40 MG VIAL IV ONE (19:30)
[2018-10-13] MEDS ORDERED: SUMATRIPTAN SUCCINATE 6 MG/0.5 ML VIAL SQ ONE ×2 (19:30→19:32)
[2018-10-13] MEDS ORDERED: LIDOCAINE VISCOUS 2% UD 15 ML UDC MM ONE (19:30)
[2018-10-13] MEDS ORDERED: MAG HYDROX/AL HYDROX/SIMETH 30 ML UDC PO ONE (19:30)
[2018-10-13] MEDS ORDERED: LIDOCAINE VISCOUS 2% UD 15 ML UDC ONE (19:32)
[2018-10-13] MEDS ORDERED: MAG HYDROX/AL HYDROX/SIMETH 30 ML UDC ONE (19:33)
[2018-10-13] MEDS ORDERED: PANTOPRAZOLE 40 MG VIAL ONE (19:33)
--- NOTE | 2018-10-13 20:40 | NUR ---
PT APPEARS TO BE RESTING COMFORTABLY WITH NO S/S OF PAIN OR DISTRESS.
--- NOTE | 2018-10-13 21:14 | NUR ---
IV removed. Catheter intact and site benign. Pressure and 4x4 applied to site. No bleeding noted. Patient discharged to home in stable condition. Written and verbal after care instructions given. Patient verbalizes understanding of instruction AND RX. PT WAS INSTRUCTED NOT TO DRIVE. PT IS GOING TO LEAVE HER CAR IN THE PARKING LOT AND WALK DOWN THE STREET TO HER HOUSE. PT AMBULATED OUT WITH A STEADY GAIT. VSS. NAD NOTED.
[2018-10-13 21:16] VITALS: BP 135/87
== END 2018-10-13 21:16 | disposition home or self-care (01) ==
LOC: ER 17:14
DX: F10.129 Alcohol abuse with intoxication, unspecified (principal); K29.70 Gastritis, unspecified, without bleeding; J40 Bronchitis, not specified as acute or chronic; G43.909 Migraine, unspecified, not intractable, without status migrainosus; R79.89 Other specified abnormal findings of blood chemistry; R11.2 Nausea with vomiting, unspecified; M79.7 Fibromyalgia; I10 Essential (primary) hypertension; E11.9 Type 2 diabetes mellitus without complications; F11.20 Opioid dependence, uncomplicated; F41.9 Anxiety disorder, unspecified; R00.0 Tachycardia, unspecified; Y90.6 Blood alcohol level of 120-199 mg/100 ml; Z98.890 Other specified postprocedural states; Z60.2 Problems related to living alone
CPT/HCPCS: 36415; 71045; 76705; 80048; 80076; 80307; 83690; 84484; 85025; 93005; 96361; 96372; 96374; 96375; 99284; C9113; J2060; J2405; J3030; J3490; J7030; G0480

== ENCOUNTER 2018-10-20 15:04 | Emergency (ER) | payer MEDICAID ==
[~2018-10-20] VITALS: Ht 172.7 cm; Wt 83.9 kg
--- NOTE | 2018-10-20 15:11 | NUR ---
PT BIBRA FOR ABD PAIN FROM HOME; PT AAOX4, -SOB, NAD NOTED, PENDIMNG MD DELA CRUZ
[2018-10-20] MEDS ORDERED: LORAZEPAM INJ 2 MG/ML VIAL IV ONE ×2 (15:30→17:00)
[2018-10-20] MEDS ORDERED: IV NS 0.9% 1,000 ML BAG IV ONE (15:30)
[2018-10-20] MEDS ORDERED: FAMOTIDINE/PF INJ 20 MG/2 ML VIAL IV ONE ×2 (15:30→15:55)
[2018-10-20] MEDS ORDERED: MAG HYDROX/AL HYDROX/SIMETH 30 ML UDC PO ONE (15:30)
[2018-10-20] MEDS ORDERED: ONDANSETRON HCL/PF 4 MG/2 ML VIAL IVP ONE (15:30)
[2018-10-20 15:44] LABS: BASOPHILS # (AUTO) 0.1 /CMM (0.0-0.2); BASOPHILS % (AUTO) 0.6 % (0.0-2.0); HEMATOCRIT 40 % (33-45); HEMOGLOBIN 13.8 g/dL (11.5-14.8); LYMPHOCYTES # (AUTO) 1.3 /CMM (0.8-4.8); MEAN CORPUSCULAR HGB CONC 34 g/dl (31.0-36.0); MEAN CORPUSCULAR VOLUME 89 fL (82-100); MONOCYTES # (AUTO) 0.3 /CMM (0.1-1.30); NEUTROPHILS # (AUTO) 7.6 /CMM (1.8-8.9); NEUTROPHILS % (AUTO) 82.4 % (43.0-81.0); PLATELET COUNT (AUTO) 429 /CMM (150-450); RED BLOOD CELL COUNT(AUTO) 4.51 MIL/uL (4.0-5.2); WHITE BLOOD COUNT (AUTO) 9.2 K/uL (4.3-11.0)
[2018-10-20 15:54] LABS: CARBON DIOXIDE 21 mmol/L (21-32); CHLORIDE 89 mmol/L (98-107); GLUCOSE 241 mg/dL (74-106); POTASSIUM 3.4 mmol/L (3.5-5.1); SODIUM SERUM 133 mmol/L (136-145); UREA NITROGEN, BLOOD 53 mg/dL (7-18)
[2018-10-20] MEDS ORDERED: MAG HYDROX/AL HYDROX/SIMETH 30 ML UDC ONE (15:54)
[2018-10-20] MEDS ORDERED: LORAZEPAM INJ 2 MG/ML VIAL ONE ×2 (15:55→16:28)
[2018-10-20] MEDS ORDERED: ONDANSETRON HCL/PF 4 MG/2 ML VIAL ONE (15:55)
[2018-10-20 16:00] LABS: ALANINE AMINOTRANSFERASE 38 U/L (12-78); ALBUMIN 3.8 g/dL (3.4-5.0); ALKALINE PHOSPHATASE 108 U/L (46-116); ASPARTATE AMINOTRANSFERASE 45 U/L (15-37); BILIRUBIN,DIRECT 0.1 mg/dL (0.0-0.2); BILIRUBIN,TOTAL 0.7 mg/dL (0.2-1.0); LIPASE 122 U/L (73-393); TOTAL PROTEIN, SERUM 7.2 g/dL (6.4-8.2)
[2018-10-20 17:12] LABS: BILIRUBIN,URINE Negative (NEGATIVE); BLOOD, URINE Negative Ery/uL (NEGATIVE); COLOR,URINE Yellow (YELLOW); KETONES,URINE Negative (NEGATIVE); LEUKOCYTE ESTERASE ,URINE Negative (NEGATIVE); NITRITE, URINE Negative (NEGATIVE); PH,URINE 5.5 (5.0-8.0); PROTEIN,URINE 30 mg/dl (NEGATIVE); UGLUCOSE Negative (NEGATIVE); UROBILINOGEN,URINE 0.2 EU/dL (0.2)
[2018-10-20 17:14] LABS: APPEARANCE,URINE CLOUDY (CLEAR)
[2018-10-20 17:21] LABS: BACTERIA,URINE Many /HPF (None Seen); HYALINE CASTS, URINE Many /LPF (None Seen); RBC,URINE 0-2 /HPF (0-2); SQUAMOUS EPITHELIAL CELL,UR Moderate /HPF (None Seen)
--- NOTE | 2018-10-20 17:50 | NUR ---
PER PT, SHE DOES NOT HAVE ANYONE THAT CAN PICK HER UP, CALLED NURSING SUP FOR A TAXI VOUCHER.
--- NOTE | 2018-10-20 18:08 | NUR ---
Patient discharged to home in stable condition. Written and verbal after care instructions given. Patient verbalizes understanding of instruction. IV removed. Catheter intact and site benign. Pressure and 4x4 applied to site. No bleeding noted.
[2018-10-20 18:26] VITALS: BP 121/65
== END 2018-10-20 18:28 | disposition home or self-care (01) ==
LOC: ER 15:06
DX: F10.239 Alcohol dependence with withdrawal, unspecified (principal); E86.0 Dehydration; R11.10 Vomiting, unspecified; R19.7 Diarrhea, unspecified; I10 Essential (primary) hypertension; E11.9 Type 2 diabetes mellitus without complications; G40.909 Epilepsy, unspecified, not intractable, without status epilepticus; F41.9 Anxiety disorder, unspecified; E03.9 Hypothyroidism, unspecified; F32.9 Major depressive disorder, single episode, unspecified; M79.7 Fibromyalgia; Z98.890 Other specified postprocedural states; Z60.2 Problems related to living alone; Z79.899 Other long term (current) drug therapy; Z79.84 Long term (current) use of oral hypoglycemic drugs; Z79.4 Long term (current) use of insulin; Y90.9 Presence of alcohol in blood, level not specified
CPT/HCPCS: 36415; 80048; 80076; 81001; 83690; 84484; 85025; 87086; 93005; 96361; 96374; 96375; 96376; 99284; J2060 ×2; J2405; J3490; J7030; 81000-TC; 87186-TC

== ENCOUNTER 2018-10-25 21:17 | Emergency (ER) | payer MEDICAID ==
[~2018-10-25] VITALS: Ht 172.7 cm; Wt 72.6 kg
[2018-10-25] MEDS ORDERED: IV NS 0.9% 1,000 ML BAG IV ONE ×2 (21:30→23:00)
--- NOTE | 2018-10-25 21:30 | NUR ---
PT [id number] FROM HOME C/O ABD PAIN FROM "DRINKING TOO MUCH VODKA". PT AOX4. RESP EVEN AND UNLABORED. PT ON MONITOR IN BED 11. WILL CONTINUE TO MONITOR.
--- NOTE | 2018-10-25 21:40 | NUR ---
URINE COLLECTED AND GIVEN TO LAB
--- NOTE | 2018-10-25 21:48 | NUR ---
BLOOD DRAWN AND GIVEN TO LAB
--- NOTE | 2018-10-25 21:50 | NUR ---
RADIOLOGY AT BEDSIDE FOR XRAY
[2018-10-25] MEDS ORDERED: FAMOTIDINE/PF INJ 20 MG/2 ML VIAL IV ONE ×2 (21:51→22:00)
[2018-10-25] MEDS ORDERED: MAG HYDROX/AL HYDROX/SIMETH 30 ML UDC ONE (21:51)
[2018-10-25 21:57] LABS: APPEARANCE,URINE SL CLOUDY (CLEAR); BILIRUBIN,URINE NEGATIVE (NEGATIVE); BLOOD, URINE NEGATIVE Ery/uL (NEGATIVE); COLOR,URINE YELLOW (YELLOW); KETONES,URINE NEGATIVE (NEGATIVE); LEUKOCYTE ESTERASE ,URINE NEGATIVE (NEGATIVE); NITRITE, URINE NEGATIVE (NEGATIVE); PROTEIN,URINE NEGATIVE (NEGATIVE); UGLUCOSE 3+ mg/dL (NEGATIVE); UROBILINOGEN,URINE 0.2 EU/dL (0.2)
[2018-10-25 21:57] LABS: BASOPHILS % (AUTO) 0.6 % (0.0-2.0); HEMATOCRIT 39 % (33-45); HEMOGLOBIN 13.1 g/dL (11.5-14.8); LYMPHOCYTES # (AUTO) 1.1 /CMM (0.8-4.8); LYMPHOCYTES % (AUTO) 13.1 % (20.0-44.0); MEAN CORPUSCULAR HGB CONC 34 g/dl (31.0-36.0); MEAN CORPUSCULAR VOLUME 90 fL (82-100); MONOCYTES # (AUTO) 0.5 /CMM (0.1-1.30); MONOCYTES % (AUTO) 6.1 % (2.0-12.0); NEUTROPHILS # (AUTO) 6.9 /CMM (1.8-8.9); NEUTROPHILS % (AUTO) 80.2 % (43.0-81.0); PLATELET COUNT (AUTO) 325 /CMM (150-450); RED BLOOD CELL COUNT(AUTO) 4.35 MIL/uL (4.0-5.2); WHITE BLOOD COUNT (AUTO) 8.7 K/uL (4.3-11.0)
[2018-10-25] MEDS ORDERED: MAG HYDROX/AL HYDROX/SIMETH 30 ML UDC PO ONE (22:00)
[2018-10-25 22:02] LABS: BACTERIA,URINE Few /HPF (None Seen); SQUAMOUS EPITHELIAL CELL,UR Few /HPF (None Seen)
[2018-10-25 22:04] LABS: CALCIUM, SERUM 8.2 mg/dL (8.5-10.1); CREATININE 2.1 mg/dL (0.6-1.3)
[2018-10-25 22:09] LABS: ALBUMIN 3.7 g/dL (3.4-5.0); BILIRUBIN,DIRECT 0.1 mg/dL (0.0-0.2); BILIRUBIN,TOTAL 0.6 mg/dL (0.2-1.0); TOTAL PROTEIN, SERUM 7.2 g/dL (6.4-8.2)
[2018-10-25 22:10] LABS: POTASSIUM 2.6 mmol/L (3.5-5.1)
[2018-10-25] MEDS ORDERED: POTASSIUM CHLORIDE 20 MEQ TAB.PRT.SR PO ONE ×2 (22:27→22:30)
[2018-10-25] MEDS ORDERED: POTASSIUM CL. PREMIX PERIPHER. 100 ML ONE (22:27)
[2018-10-25] MEDS: POTASSIUM CL. PREMIX PERIPHER. 50 ML IV SCH ×2 (22:30→23:30)
[2018-10-25 22:44] VITALS: BP 119/87
--- NOTE | 2018-10-25 22:44 | NUR ---
Guilherme BOYD ADMINISTERED TO PT. PT VOMITTED MED. AWARE.
--- NOTE | 2018-10-25 22:51 | NUR ---
JERONIMO WEST FROM [facility]
[2018-10-25] MEDS ORDERED: diphenhydrAMINE HCL 50 MG/ML VIAL IV ONE (23:00)
[2018-10-25] MEDS ORDERED: DICYCLOMINE HCL INJ 20 MG/2 ML AMPUL IM ONE ×2 (23:00→23:07)
[2018-10-25] MEDS ORDERED: METOCLOPRAMIDE HCL 10 MG/2 ML VIAL IV ONE (23:00)
[2018-10-25] MEDS ORDERED: diphenhydrAMINE HCL 50 MG/ML VIAL ONE (23:07)
[2018-10-25] MEDS ORDERED: METOCLOPRAMIDE HCL 10 MG/2 ML VIAL ONE (23:07)
--- NOTE | 2018-10-25 23:07 | NUR ---
PT ACCEPTED TO [facility] ACCEPTING PHYSICIAN: DR. WEST NUMBER FOR REPORT: [phone] BED ASSIGNMENT: [id number]
--- NOTE | 2018-10-25 23:14 | NUR ---
CALLED [facility] FOR TRANSPORTATION. ETA 0100, TRIP NUMBER [id number]
--- NOTE | 2018-10-25 23:46 | NUR ---
Patient is resting comfortably in bed with eyes closed. Easily aroused. VSS.
--- NOTE | 2018-10-25 23:53 | NUR ---
[facility] CALLED. ETA OF AMBULANCE WILL BE 10 MINUTES.
--- NOTE | 2018-10-25 23:56 | NUR ---
REPORT GIVEN TO DARRON NEELY AT [facility]
--- NOTE | 2018-10-26 00:18 | NUR ---
SECOND BAG OF POTASSIUM NOT ADMINISTERED B/C AMBULANCE CAME TO PICK PT UP. MD AWARE. ACCEPTING NURSE AWARE.
== END 2018-10-26 00:25 | disposition short-term general hospital (02) ==
LOC: ER 21:19
DX: E87.6 Hypokalemia (principal); E11.65 Type 2 diabetes mellitus with hyperglycemia; N28.9 Disorder of kidney and ureter, unspecified; K29.70 Gastritis, unspecified, without bleeding; E87.1 Hypo-osmolality and hyponatremia; E87.2 Acidosis; R11.2 Nausea with vomiting, unspecified; I10 Essential (primary) hypertension; G40.909 Epilepsy, unspecified, not intractable, without status epilepticus; F41.9 Anxiety disorder, unspecified; E03.9 Hypothyroidism, unspecified; F32.9 Major depressive disorder, single episode, unspecified; F10.20 Alcohol dependence, uncomplicated; M79.7 Fibromyalgia; Y90.8 Blood alcohol level of 240 mg/100 ml or more; Z98.890 Other specified postprocedural states; Z60.2 Problems related to living alone
CPT/HCPCS: 36415; 71045; 80048; 80076; 80307; 81001; 83690; 84703; 85025; 96361; 96365; 96372; 96375; 99285; J0500; J1200; J2765; J3480; J3490; J7030 ×2; 81000-TC; G0480